=== PATIENT | male | born 1960 | race African-American/Black ===

== ENCOUNTER 2016-07-18 20:17 | Emergency (ER) | payer MEDICARE, MEDICAID ==
[2016-07-18] MEDS ORDERED: ASPIRIN 81 MG CHEW TAB ONE (21:27)
== END 2016-07-19 01:13 | disposition home or self-care (01) ==
LOC: ER 20:17
DX: R07.89 Other chest pain (principal); R09.1 Pleurisy; I10 Essential (primary) hypertension; T46.5X6A Underdosing of other antihypertensive drugs, initial encounter; Z91.138 Patient's unintentional underdosing of medication regimen for other reason; F17.200 Nicotine dependence, unspecified, uncomplicated
CPT/HCPCS: 36415; 71010; 80053; 82550; 83735; 84484; 85025; 85610; 85730; 93005